=== PATIENT | female | born 1980 | race Caucasian/White ===

== ENCOUNTER → 2018-08-26 | Day surgery (SDC) | payer OTHER ==
--- NOTE | 2018-08-26 11:56 | RAD REPORT ---
EXAM DESCRIPTION: US - Guided FNA Non Breast - 08/26/2018 11:42 am CLINICAL HISTORY: E04.1 COMPARISON: Chest Pa And Lat (2 Views) dated 06/10/2018; Pelvis Complete dated 11/10/2015; SINUS W O CONTRAST dated 09/14/2014; Thyroid Para Parotid Gland dated 08/06/2018 FINDINGS: Preoperative diagnosis: Right thyroid nodule.. Post operative diagnosis: Same. Conscious Sedation: None Fluoroscopy time: None Contrast used: None Estimated blood loss: Minimal Specimens:5 x 25 gauge FNA samples The right neck was prepped and draped in the usual sterile fashion. 1% lidocaine was infiltrated into the subcutaneous tissues for local anesthesia. Real time ultrasound scanning of the right neck demon strated 12 x 10 x 5 mm hypoechoic nodule in the right thyroid anteriorly.. Under ultrasound guidance, 5 x 25 gauge FNA specimens were obtained of this lesion and sent to pathology for evaluation. There were no complications. IMPRESSION: Successful ultrasound-guided right thyroid nodule FNA.
== END ==
LOC: FNA 10:42
PROVIDERS: ATTEND Otolaryngology
PROC: 0G9H3ZX Drainage of Right Thyroid Gland Lobe, Percutaneous Approach, Diagnostic (ICD-10-PCS; principal; 2018-08-26)
PROC: BG44ZZZ Ultrasonography of Thyroid Gland (ICD-10-PCS; 2018-08-26)
DX: E04.1 Nontoxic single thyroid nodule (principal)
CPT/HCPCS: 88162